=== PATIENT | female | born 1980 | race Caucasian/White ===

== ENCOUNTER 2024-03-22 04:42 | Day surgery (SDC) | payer OTHER ==
[2024-03-20 10:08] VITALS: BMI 19.7
[2024-03-22] MEDS ORDERED: ACETAMINOPHEN 500 MG TABLET (FP) PO PRN (08:51)
[2024-03-22] MEDS ORDERED: LIDOCAINE HCL/PF 1% SDV 5ML VIAL ONE (14:31)
[2024-03-22] MEDS: IOHEXOL 180 MG/1 ML ML IJ ONE ×2 (14:42)
[2024-03-22] MEDS: LIDOCAINE HCL 1% PRESERVATIVE FREE - 30ML VIAL IJ ONE ×2 (14:44)
[2024-03-22] MEDS: BUPIVACAINE HCL/PF 0.5% (5MG/ML) 10 ML VIAL IJ ONE ×3 (14:44)
[2024-03-22 15:05] VITALS: BP 119/76; PULSE 78; RESP 20; TEMP 99.1
== END 2024-03-22 15:30 | disposition home or self-care (01) ==
LOC: JASU-SURG 04:42
PROVIDERS: ATTEND Pain Medicine Pain Medicine
PROC: 3E0T3BZ Introduction of Anesthetic Agent into Peripheral Nerves and Plexi, Percutaneous Approach (ICD-10-PCS; principal; 2024-03-22 14:30)
DX: M47.812 Spondylosis without myelopathy or radiculopathy, cervical region (principal)
CPT/HCPCS: 76000-TC-FY; 81025

== ENCOUNTER 2024-04-19 04:11 | Day surgery (SDC) | payer OTHER ==
[2024-04-17 16:29] VITALS: BMI 19.7
[2024-04-19] MEDS ORDERED: ACETAMINOPHEN 500 MG TABLET (FP) PO PRN (08:59)
[2024-04-19] MEDS: BUPIVACAINE HCL/PF 0.5% (5MG/ML) 10 ML VIAL IJ ONE ×2 (14:27)
[2024-04-19 15:52] VITALS: BP 134/80; PULSE 97; RESP 16; TEMP 98
== END 2024-04-19 15:45 | disposition home or self-care (01) ==
LOC: JASU-SURG 04:11
PROVIDERS: ATTEND Pain Medicine Pain Medicine
PROC: 3E0T33Z Introduction of Anti-inflammatory into Peripheral Nerves and Plexi, Percutaneous Approach (ICD-10-PCS; 2024-04-19)
PROC: 3E0T3BZ Introduction of Anesthetic Agent into Peripheral Nerves and Plexi, Percutaneous Approach (ICD-10-PCS; principal; 2024-04-19 14:45)
DX: M47.812 Spondylosis without myelopathy or radiculopathy, cervical region (principal)
CPT/HCPCS: 76000-TC-FY; 81025

== ENCOUNTER 2024-05-17 04:04 | Day surgery (SDC) | payer OTHER ==
[2024-05-15 19:10] VITALS: BMI 19.7
[2024-05-17] MEDS ORDERED: ACETAMINOPHEN 500 MG TABLET (FP) PO PRN (08:45)
[2024-05-17] MEDS: LIDOCAINE HCL/PF 2% SDV 5ML VIAL INF ONE (14:58)
[2024-05-17] MEDS: BUPIVACAINE HCL/PF 0.5% (5 MG/ML) 30 ML VIAL IJ ONE (14:58)
[2024-05-17] MEDS: LIDOCAINE 1% P/F 10 MG/ML VIAL INF ONE (14:58)
[2024-05-17] MEDS: DEXAMETHASONE SOD PHOSPHATE 10 MG/1 ML VIAL IVPUSH ONE (14:58)
[2024-05-17 15:34] VITALS: BP 125/70; PULSE 76; RESP 17; TEMP 97.7
== END 2024-05-17 16:08 | disposition home or self-care (01) ==
LOC: JASU-SURG 04:04
PROVIDERS: ATTEND Pain Medicine Pain Medicine
PROC: 01513ZZ Destruction of Cervical Nerve, Percutaneous Approach (ICD-10-PCS; principal; 2024-05-17 14:30)
DX: M47.812 Spondylosis without myelopathy or radiculopathy, cervical region (principal)
CPT/HCPCS: 76000-TC-FY; J1100